=== PATIENT | female | born 1970 | race Caucasian/White ===

== ENCOUNTER 2017-09-15 11:48 | Day surgery (SDC) | payer BC ==
[~2017-09-15 11:48] MED LIST: BACITRACIN 50,000 UNIT ONE; BUPIVACAINE 0.25% ONE; BUPIVACAINE/PF 0.5% ONE; EPINEPHRINE 1 MG/ML, 1ML ONE; THROMBIN 5,000 UNIT VIAL TP ONE
== END 2017-09-15 12:30 | disposition home or self-care (01) ==
LOC: OUT 11:48
PROVIDERS: ATTEND Neurological Surgery
DX: Z53.9 Procedure and treatment not carried out, unspecified reason (principal)
CPT/HCPCS: J0171; J3490